=== PATIENT | male | born 1965 | race Two or more races ===

== ENCOUNTER 2018-05-01 13:06 | Emergency (ER) | payer SELFPAY ==
[~2018-05-01] VITALS: Ht 177.8 cm; Wt 113.4 kg
[~2018-05-01 13:06] MED LIST: ALLO300T2 PO; COLCPOW2 PO; INS7030I SC; LOSA25TA40 PO; METF-370 PO; PANT40TA2 PO
[2018-05-01 13:21] VITALS: BP 122/76
[2018-05-01] MEDS ORDERED: SILVER SULFADIAZINE 1 % TOPICAL CREAM 50GM TOP ONE (14:45)
== END 2018-05-01 15:39 | disposition home or self-care (01) ==
LOC: ER 13:06
DX: T20.10XA Burn of first degree of head, face, and neck, unspecified site, initial encounter (principal); M70.32 Other bursitis of elbow, left elbow; E11.9 Type 2 diabetes mellitus without complications; I10 Essential (primary) hypertension; M10.9 Gout, unspecified; F17.290 Nicotine dependence, other tobacco product, uncomplicated; Z59.0 Homelessness; X08.8XXA Exposure to other specified smoke, fire and flames, initial encounter; Y93.89 Activity, other specified; Y99.8 Other external cause status; Y92.89 Other specified places as the place of occurrence of the external cause

== ENCOUNTER 2019-04-16 15:42 | Inpatient (IN) | payer SELFPAY ==
[~2019-04-16] VITALS: Ht 177.8 cm; Wt 103.1 kg
[~2019-04-16 15:42] MED LIST changes: +LOSA25TA38 PO; -LOSA25TA40 PO
[2019-04-16 16:16] LABS: Basophils # (auto) 0.1 uL; Basophils % (auto) 0.9 % (0.0-2.0); Eosinophils # (auto) 0.2 uL; Eosinophils % (auto) 1.7 % (0.0-7.0); Hematocrit 29.8 % (41.0-53.0); Hemoglobin 10.5 g/dL (13.5-17.5); Lymphocytes % (auto) 22.7 % (10.0-50.0); Mean Corpuscular Hemoglobin 31.9 pg (28.0-32.0); Mean Corpuscular Hgb Conc. 35.1 g/dL (32.0-36.0); Mean Corpuscular Volume 90.9 fL (80.0-100.0); Monocytes # (auto) 0.6 uL; Neutrophils % (auto) 67.7 % (37.0-80.0); Nucleated Red Blood Cells % 0.2 %; Platelet Count (auto) 241 10^3/uL (140-450); Red Blood Cells 3.28 10^6/uL (4.5-5.90); Red Cell Distribution Width 14.1 % (11.8-14.3); White Blood Cell 8.9 10^3/uL (4.4-10.8)
[2019-04-16 17:38] LABS: Albumin 3.5 g/dL (3.4-5.0); Anion Gap 8 (5-15); Blood Urea Nitrogen 19 mg/dL (7-18); Calcium 8.8 mg/dL (8.5-10.1); Carbon Dioxide 24 mmol/L (21-32); Chloride 104 mmol/L (98-107); Glucose 198 mg/dL (74-106); Potassium 3.8 mmol/L (3.5-5.1); Sodium 136 mmol/L (136-145)
[2019-04-16 17:45] LABS: Alanine Aminotransferase 19 U/L (16-61); Alkaline Phosphatase 89 U/L (45-117); Aspartate Aminotransferase 15 U/L (15-37); BUN/Creatinine Ratio 24.1; Bilirubin, Total 0.5 mg/dL (0.2-1.0); GFR African American 131 mL/min; GFR Non-African American 108 mL/min; Total Protein 6.6 g/dL (6.4-8.2)
[2019-04-17] MEDS ORDERED: PANTOPRAZOLE 40 MG/10 ML VIAL INJ IV ONE (01:00)
[2019-04-17] MEDS ORDERED: SODIUM CHLORIDE 0.9% 1,000 ML IV ONE (01:00)
[2019-04-17] MEDS ORDERED: ONDANSETRON HCL 4 MG/2 ML VIAL IV ONE (01:00)
[2019-04-17] MEDS ORDERED: PANTOPRAZOLE 80 MG in SODIUM CHL 0.9% 60 ML IV ONE (01:00)
[2019-04-17 02:08] LABS: INR 1.03 (0.9-1.15); Partial Thromboplastin Time 25.6 sec (23.64-32.05)
[2019-04-17 02:10] LABS: Amylase 32 U/L (25-115); Lipase 82 U/L (73-393)
[2019-04-17] MEDS ORDERED: ONDANSETRON HCL 4 MG/2 ML VIAL IV PRN (05:15)
[2019-04-17] MEDS ORDERED: MORPHINE SULF INJ 2 MG/ML SYRINGE 1ML IV PRN (05:15)
[2019-04-17] MEDS ORDERED: NITROGLYCERIN 0.4 MG SL TAB SL PRN (05:15)
[2019-04-17] MEDS ORDERED: PANTOPRAZOLE 80 MG in SODIUM CHL 0.9% 60 ML IV SCH (05:15)
[2019-04-17] MEDS ORDERED: DEXTROSE (50%) 50ML SYRG IV PRN (05:15)
[2019-04-17] MEDS: SODIUM CHLORIDE 0.9% 1,000 ML IV SCH ×2 (05:31→18:35)
[2019-04-17] MEDS: ACCU-CHEK COMFORT CURVE STRIP VI SCH ×3 (05:56→17:45)
[2019-04-17] MEDS: InsuLIN REG 1unit/0.01ml Soln (100units/ml) SC SCH ×3 (05:59→17:58)
[2019-04-17 06:04] LABS: Hematocrit 25.3 % (41.0-53.0); Hemoglobin 8.7 g/dL (13.5-17.5)
[2019-04-17 08:00] VITALS: BP 99/58
--- NOTE | 2019-04-17 08:30 | NUR ---
Telemetry admit from [facility] admitted to Telemetry unit. Patient oriented to primary RN, unit, room, bed, and unit policies regarding patient care and visiting hours. Patient now on continuous telemetry monitoring, tele box #14 and telemetry reading on arrival to unit is SINUS JOSELIN 55. VITAL SIGNS TAKEN, ON ROOM AIR SATURATING 100%.BP 99/58,RR 18,HR 56,TEMP.97.9,weighed by bedscale and encouraged to call if they need something. All questions and concerns addressed, patient verbalized understanding.
--- NOTE | 2019-04-17 11:30 | NUR ---
MD VISIT DR. RAO HERE TO SEE AND EXAMINED PATIENT,INFORMED PATIENT PLAN OF CARE AND EXPECTED PROCEDURE,EGD, PATIENT VERBALIZED UNDERSTANDING.
[2019-04-17] MEDS ORDERED: MIDAZOLAM HCL 5 MG/ML-1ML VIAL ONE (11:32)
[2019-04-17] MEDS ORDERED: fentaNYL CITRATE 100 MCG/2 ML VL ONE (11:32)
[2019-04-17] MEDS ORDERED: LIDOCAINE VISCOUS 2% 15ML UD ONE (11:32)
[2019-04-17] MEDS ORDERED: FLUMAZENIL 0.1 MG/ML INJ 10ML MDV IV ONE (11:32)
[2019-04-17] MEDS ORDERED: SODIUM CHLORIDE LOCK 10 ML ONE (11:32)
[2019-04-17] MEDS ORDERED: NALOXONE HCL 0.4 MG/ML VIAL ONE (11:32)
[2019-04-17] MEDS ORDERED: diphenhdrAMINE HCL 50 MG/1 ML VL ONE (11:33)
--- NOTE | 2019-04-17 11:45 | NUR ---
CONSENT FOR EGD SIGNED BY PATIENT,SEE CONSENT SIGNED
[2019-04-17 12:00] VITALS: BP 100/57
--- NOTE | 2019-04-17 12:40 | NUR ---
TO OPS FOR EGD,REPORT GIVEN TO JUANI SALEH
--- NOTE | 2019-04-17 13:35 | NUR ---
PATIENT CHECKED ALREADY IN ROOM EATING LUNCH (REPORT POST EGD RECEIVED BY DANYELLE SALEH LUNCH COVERAGE) NO DISTRESS NO DISCOMFORT. Addendum: 04/17/19 at 1612 by Shayy Porter RN RN [id number] TIME FOR ABOVE EVENT
[2019-04-17 17:00] VITALS: BP 98/60
--- NOTE | 2019-04-17 17:14 | NUR ---
RESTING NO DISTRESS NO DISCOMFORT
[2019-04-17 22:00] VITALS: BP 91/59
[2019-04-17] MEDS: PANTOPRAZOLE 40 MG TAB PO SCH (22:16)
[2019-04-18] VITALS (23 sets, daily range): BP systolic 80–102; BP diastolic 46–67
[2019-04-18] MEDS: InsuLIN REG 1unit/0.01ml Soln (100units/ml) SC SCH ×5 (06:01→23:45)
[2019-04-18] MEDS: ACCU-CHEK COMFORT CURVE STRIP VI SCH ×5 (06:01→23:52)
[2019-04-18 06:34] LABS: Basophils # (auto) 0 uL; Basophils % (auto) 0.6 % (0.0-2.0); Eosinophils # (auto) 0.2 uL; Eosinophils % (auto) 2.6 % (0.0-7.0); Hematocrit 24.3 % (41.0-53.0); Hemoglobin 8.5 g/dL (13.5-17.5); Lymphocytes # (auto) 1.9 uL; Lymphocytes % (auto) 28.7 % (10.0-50.0); Mean Corpuscular Hemoglobin 32.4 pg (28.0-32.0); Mean Corpuscular Hgb Conc. 35.1 g/dL (32.0-36.0); Mean Corpuscular Volume 92.4 fL (80.0-100.0); Monocytes # (auto) 0.5 uL; Monocytes % (auto) 7.2 % (0.0-12.0); Neutrophils % (auto) 60.9 % (37.0-80.0); Nucleated Red Blood Cells % 0.1 %; Platelet Count (auto) 197 10^3/uL (140-450); Red Blood Cells 2.63 10^6/uL (4.5-5.90); Red Cell Distribution Width 14.2 % (11.8-14.3); White Blood Cell 6.6 10^3/uL (4.4-10.8)
--- NOTE | 2019-04-18 06:51 | NUR ---
HOSPITALIST PAGED REGARDING H/G OF 8.5/24.3;WITH TEVIN CALLING BACK RIGHT AWAY;BUT NO ORDERS RECEIVED. WILL PASS DOWN TO DAYSHIFT RN TO MAKE AM HOSPITALIST AWARE OF RESULTS.
[2019-04-18 07:06] LABS: BUN/Creatinine Ratio 11.4; Calcium 8.2 mg/dL (8.5-10.1); Potassium 3.6 mmol/L (3.5-5.1)
[2019-04-18] MEDS: SODIUM CHLORIDE 0.9% 1,000 ML IV SCH ×2 (08:14→21:15)
[2019-04-18] MEDS: PANTOPRAZOLE 40 MG TAB PO SCH ×2 (09:51→22:29)
[2019-04-18] MEDS ORDERED: SODIUM CHLORIDE 0.9% 1,000 ML IV ONE (11:00)
--- NOTE | 2019-04-18 11:30 | NUR ---
LOW BLOOD PRESSURE PATIENT BLOOD PRESSURE 84/[address] Leslee NGUYEN ORDERED 1L NS IV BOLUS OVER 2 HOURS.
--- NOTE | 2019-04-18 15:00 | NUR ---
LOW BLOOD PRESSURE CALLED DR. Leslee NGUYEN REGARDING LOW BP OF 87/56 [facility]. THE PATIENT WAS GIVEN A 1L BOLUS NS IV BEFORE LAST BLOOD PRESSURE READING. DR. NGUYEN ORDERED IV NS TO BE INCREASED TO 150 ML/HR.
--- NOTE | 2019-04-18 15:45 | NUR ---
PATIENT TO BE TRANSFERRED TO [facility]/ICU PER DR. Leslee NGUYEN REQUEST.
[2019-04-18] MEDS ORDERED: NOREPINEPHRINE 8 MG/250ML KIT 250 ML IV SCH (15:47)
--- NOTE | 2019-04-18 16:07 | NUR ---
REPORT GIVEN TO MIKAL IN ICU PATIENT TO GO TO ROOM 102 UNDER CARE OF THE RNMIKAL.
--- NOTE | 2019-04-18 16:07 | NUR ---
REPORT RECEIVED FROM NURSE PEREZ FROM TELEMETRY FLOOR. PATIENT TRANSFER TO ROOM 102 ICU.
--- NOTE | 2019-04-18 16:29 | NUR ---
PATIENT TAKEN TO ICU PATIENT TRANSPORTED TO ICU BED 102, BY ABNER RESERVATION SALES AGENT, AND MIREYA BLEVINS. PATIENT IS A&OX4, NO SIGNS OR SYMPTOMS OF DISTRESS. THE PATIENT HAS ALL BELONGINGS AND CHART WAS SENT DOWN WITH THE RESERVATION SALES AGENT. REPORT WAS GIVEN TO MIKAL PUBLIC RELATIONS STUDIES DIRECTOR.
--- NOTE | 2019-04-18 16:30 | NUR ---
PATIENT ARRIVED TO ROOM 102 ICU VIA BED CONNECTED TO PORTABLE MONITOR. PATIENT CONNECTED TO BEDSIDE MONITOR. VITAL SIGNS STABLE. RESPIRATIONS EVEN AND UNLABORED NO SIGNS OF ACUTE DISTRESS NOTED. CALL LIGHT IN REACH, BED IN LOW POSITION. WILL CONTINUE TO MONITOR.
--- NOTE | 2019-04-18 20:00 | NUR ---
ADMITTING DIAGNOSIS: GI BLEED. CAME IN AFTER HAVING TARRY STOOLS AND SYNCOPE. HG STABLE. HAD AN EGD TODAY. PATIENT IS AWARE OF THE RESULTS. SBP LOW ON THE FLOOR. 2 LITER BOLUS GIVEN AND TRANSFERRED TO ICU 102. NO FEVER. SBP STABLE. LAST HG 8.5. HR 59. SINUS BRADYCARDIA. NO ECTOPY. IV LEAKING AT THE LEFT AC. REMOVED IV. PICC RN TO COME AND PLACE A MIDLINE.
--- NOTE | 2019-04-18 21:58 | NUR ---
MIDLINE INSERTION LAC.
--- NOTE | 2019-04-18 22:10 | NUR ---
Midline Placement: Patient educated on need for midline placement. All risks and benefits explained and all questions and concerns addresses prior to procedure. 18g/10cm midline inserted via L BASILIC vein using Ultrasound. Sterile technique utilized. Blood return obtained from SINGLE lumen and flushed easily with NS using proper technique. Midline secured with saline lock; biodisc and occlusive dressing applied. Primary RN notified. Midline lot # [id number].
[2019-04-19] VITALS (16 sets, daily range): BP systolic 89–112; BP diastolic 54–73
--- NOTE | 2019-04-19 | NUR ---
ACCUCHECK 247. HECTOR CRACKERS AND MILK, LUNGS CLEAR. ROOM AIR. DENIES PAIN. SPEECH CLEAR. NO GAS PAINS. LOW GRADE FEVER 99.2
--- NOTE | 2019-04-19 02:10 | NUR ---
DENIES PAIN, NAUSEA, DYSPNEA OR DIAPHORESIS. NO BLOODY STOOLS.
--- NOTE | 2019-04-19 02:53 | NUR ---
UNABLE TO DRAW FROM THE MIDLINE
--- NOTE | 2019-04-19 04:00 | NUR ---
SBP 89-96 WITH A MAP ALWAYS GREATER THAN 64. HR MINIMUM 49 AND MAX 66. DENIES PAIN. NO ECTOPY. LUNGS CLEAR. ROOM AIR. ABDOMEN SOFT. NO BLOODY STOOLS. VOIDED TWICE SO FAR THIS SHIFT. MIDLINE PATENT. NS AT 75CC/HR.
[2019-04-19 04:19] LABS: Basophils # (auto) 0 uL; Eosinophils # (auto) 0.1 uL; Monocytes # (auto) 0.4 uL; Nucleated Red Blood Cells % 0.1 %
[2019-04-19 04:22] LABS: Basophils % (auto) 0.3 % (0.0-2.0); Eosinophils % (auto) 2.2 % (0.0-7.0); Hematocrit 22.9 % (41.0-53.0); Lymphocytes # (auto) 1.7 uL; Lymphocytes % (auto) 27.4 % (10.0-50.0); Mean Corpuscular Hemoglobin 32.7 pg (28.0-32.0); Mean Corpuscular Volume 93.2 fL (80.0-100.0); Monocytes % (auto) 6.9 % (0.0-12.0); Neutrophils # (auto) 3.8 uL; Neutrophils % (auto) 63.2 % (37.0-80.0); Platelet Count (auto) 178 10^3/uL (140-450); Red Blood Cells 2.45 10^6/uL (4.5-5.90); Red Cell Distribution Width 14.6 % (11.8-14.3)
[2019-04-19] MEDS: InsuLIN REG 1unit/0.01ml Soln (100units/ml) SC SCH ×2 (05:42→12:47)
[2019-04-19] MEDS: ACCU-CHEK COMFORT CURVE STRIP VI SCH ×2 (05:43→12:00)
--- NOTE | 2019-04-19 06:00 | NUR ---
SLEEPING. SINUS BRADYCARDIA WITHOUT ECTOPY.
--- NOTE | 2019-04-19 07:25 | NUR ---
REPORT RECEIVED FROM APRON OPERATOR NURSE. PATIENT RESTING IN BED AT THIS TIME. RESPIRATIONS EVEN AND UNLABORED. NO SIGNS OF ACUTE DISTRESS NOTED. CALL LIGHT IN REACH, BED IN LOW POSITION. WILL CONTINUE TO MONITOR.
--- NOTE | 2019-04-19 08:45 | NUR ---
DR Cesar NGUYEN AT BEDSIDE TO ASSESS PATIENT AND DISCUSS PLAN OF CARE.
[2019-04-19 08:56] LABS: Albumin 2.8 g/dL (3.4-5.0); Calcium 7.9 mg/dL (8.5-10.1); Potassium 3.7 mmol/L (3.5-5.1)
[2019-04-19 08:59] LABS: BUN/Creatinine Ratio 8.2; Bilirubin, Total 0.3 mg/dL (0.2-1.0); Total Protein 5.2 g/dL (6.4-8.2)
[2019-04-19] MEDS: PANTOPRAZOLE 40 MG TAB PO SCH (09:28)
--- NOTE | 2019-04-19 09:40 | NUR ---
EKG COMPLETED PER MD ORDER
--- NOTE | 2019-04-19 10:00 | NUR ---
LIGHTHOUSE KEEPER AT BEDSIDE
--- NOTE | 2019-04-19 10:43 | NUR ---
REPORT GIVEN TO JACKIE SALEH FROM TELEMETRY FLOOR. PATIENT TO GO TO ROOM 214A. TELE BOX 40
--- NOTE | 2019-04-19 10:45 | NUR ---
PATIENT CARE ASSUMED REPORT RECEIVED. PT CARE ASSUMED. PT DENIES ANY PAIN/DISTRESS AT THIS TIME. PT UPDATED ON POC AND PENDING STOOL OCCULT. PT VERBALIZED UNDERSTANDING.
--- NOTE | 2019-04-19 10:45 | NUR ---
PATIENT TRANSFERRED TO ROOM 214A VIA WHEELCHAIR CONNECTED TO TELE BOX 40. NO SIGNS OF ACUTE DISTRESS NOTED. ANAESTHETIC TECHNICIAN AT BEDSIDE. INFORMED JACKIE OF PATIENT ARRIVAL.
[2019-04-19] MEDS: SODIUM CHLORIDE 0.9% 1,000 ML IV SCH (12:46)
--- NOTE | 2019-04-19 12:53 | NUR ---
FAMILIY AT BEDSIDE FAMILY AT BEDSIDE UPDATED ON POC. AWARE OF PENDING CARDIO EVAL.
--- NOTE | 2019-04-19 14:50 | NUR ---
Nutrition Assessment Notes please see attached link for complete assessment Est. Needs ABW [id number] kcal (23-25 kcal/kg), 89-97 gms pro (1.0-1.1 gms/kgBW). Will continue to monitor pertinent labs and reassess nutrient need prn Addendum: 04/19/19 at [address] Amended: Links added.
--- NOTE | 2019-04-19 15:24 | NUR ---
DISCHARGE CLEARANCE DR. HEREDIA AT BEDSIDE. STATING PATIENT IS CLEARED FOR DC. SIMONA WITH ECHO REPORT NOT BEING AVAILABLE YET. Addendum: 04/19/19 at 1715 by Narcisa Jones RN RN ORDERS RECEIVED TO COMPLETE ORTHOSTATICS. ORDER CARRIED OUT.
--- NOTE | 2019-04-19 16:26 | NUR ---
AT BEDSIDE DR. HUSAIN AT BEDSIDE DISCUSSING BIOPSY RESULTS WITH PTS. SPOKE TO MD REGARDING WHETHER OR NOT PT TO F/U IN 10 DAYS. OK FOR PT TO F/U IN 1 MONTH. PT INFORMED AND VERBALIZED UNDERSTANDING. Addendum: 04/19/19 at 1713 by Narcisa Jones RN RN MD PROVIDED ABX SCRIPTS FOR PATIENT. FAXED DOWN TO [facility]. ALL DC PRESCRIPTION PICKED UP BY PATIENTS SISTER.
--- NOTE | 2019-04-19 16:59 | NUR ---
assessment Patient is a 54 year old male who is alert and oriented. Patients cognitive abilities are intact. Prior to admission patient lived home with his girlfriend and functioned independently. Patient informed me he is able to care for his own ADLs. Per patient he will return home to his prior living arrangements post discharge and family will transport him home. Patient has no need for DME. Patient feels safe returning home on discharge. Patient has no post discharge needs. I informed patient he has a right to speak to a social studies teacher regarding all care. I informed patient he has a right to participate in any and all discharge planning. Patient does not have a POA and advanced directive. I have offered patient information on POA and advanced directives. I informed the patient the advantages and benefits of having an Advanced Directive. Patient verbalized understanding and agreed to discharge plan. Addendum: 04/19/19 at 1701 by Stacie DONNELLY Amended: Links added.
== END 2019-04-19 17:15 | disposition home or self-care (01) | DRG 379 ==
LOC: ER 15:42 → TELE 15:43 → TELE-EAST 04-17 08:36 → ICU WEST 04-18 16:30 → CENTRAL 04-19 10:51
PROVIDERS: ADMIT Nurse Practitioner; ATTEND Family Medicine
PROC: 0DB68ZX Excision of Stomach, Via Natural or Artificial Opening Endoscopic, Diagnostic (ICD-10-PCS; principal; 2019-04-17 12:51)
DX: K29.71 Gastritis, unspecified, with bleeding (principal); E66.9 Obesity, unspecified; E86.0 Dehydration; F17.290 Nicotine dependence, other tobacco product, uncomplicated; I10 Essential (primary) hypertension; D64.9 Anemia, unspecified; K26.7 Chronic duodenal ulcer without hemorrhage or perforation; M10.9 Gout, unspecified; E11.9 Type 2 diabetes mellitus without complications; R00.1 Bradycardia, unspecified; I95.9 Hypotension, unspecified; R55 Syncope and collapse; Z59.0 Homelessness; Z83.3 Family history of diabetes mellitus; Z87.11 Personal history of peptic ulcer disease; Z68.32 Body mass index [BMI] 32.0-32.9, adult
CPT/HCPCS: 36415; 70450; 74176; 80048; 80053; 82150; 82962; 83605; 83690; 84484; 85014; 85018; 85025; 85610; 85730; 86850; 86900; 86901; 87081; 93306; C9113; G0378; J1815; J2250; J2405

== ENCOUNTER → 2020-04-18 | Emergency (ER) | payer MEDICAID ==
[~2020-04-18] VITALS: Ht 177.8 cm; Wt 99.8 kg
[~2020-04-18] MED LIST changes: +FLUORESCEIN SOD 1 MG TEST STRIP LEFTEYE ONE; +TETRACAINE HCL 0.5% OPTH(EYE) SOLN 4ML LEFTEYE ONE
[2020-04-19 01:40] VITALS: BP 146/94
== END | disposition home or self-care (01) ==
LOC: ER 23:24
DX: H20.00 Unspecified acute and subacute iridocyclitis (principal); E11.9 Type 2 diabetes mellitus without complications; I10 Essential (primary) hypertension; F17.210 Nicotine dependence, cigarettes, uncomplicated; Z79.4 Long term (current) use of insulin; Z79.899 Other long term (current) drug therapy; Z79.84 Long term (current) use of oral hypoglycemic drugs; Z59.0 Homelessness

== ENCOUNTER 2020-10-09 14:57 | Emergency (ER) | payer MEDICAID ==
[~2020-10-09] VITALS: Ht 175.3 cm; Wt 99.8 kg
[~2020-10-09 14:57] MED LIST changes: -FLUORESCEIN SOD 1 MG TEST STRIP LEFTEYE ONE; -TETRACAINE HCL 0.5% OPTH(EYE) SOLN 4ML LEFTEYE ONE
[2020-10-09] MEDS ORDERED: InsuLIN REG 1unit/0.01ml Soln (100units/ml) IV ONE ×2 (15:15→18:15)
[2020-10-09] MEDS ORDERED: SODIUM CHLORIDE 0.9% 1,000 ML IV ONE (15:15)
[2020-10-09 15:29] LABS: Basophils # (auto) 0.1 10 ^3/uL (0-0.2); Basophils % (auto) 0.9 % (0.0-2.0); Eosinophils # (auto) 0.1 10 ^3/uL (0-0.8); Eosinophils % (auto) 1.8 % (0.0-7.0); Hemoglobin 15.8 g/dL (13.5-17.5); Lymphocytes # (auto) 1.5 10 ^3/uL (0.4-5.4); Mean Corpuscular Hemoglobin 31.8 pg (28.0-32.0); Mean Corpuscular Hgb Conc. 35.1 g/dL (32.0-36.0); Mean Corpuscular Volume 90.6 fL (80.0-100.0); Monocytes # (auto) 0.5 10 ^3/uL (0-1.3); Monocytes % (auto) 6.5 % (0.0-12.0); Neutrophils # (auto) 5.4 10 ^3/uL (1.6-8.6); Neutrophils % (auto) 70.8 % (37.0-80.0); Nucleated Red Blood Cells % 0.2 %; Platelet Count (auto) 204 10^3/uL (140-450); Red Blood Cells 4.96 10^6/uL (4.5-5.90); Red Cell Distribution Width 13.7 % (11.8-14.3); White Blood Cell 7.6 10^3/uL (4.4-10.8)
[2020-10-09 15:48] LABS: Albumin 4.3 g/dL (3.4-5.0); BUN/Creatinine Ratio 12.6; Calcium 8.9 mg/dL (8.5-10.1); Potassium 3.9 mmol/L (3.5-5.1)
[2020-10-09 15:55] LABS: Bilirubin, Total 0.8 mg/dL (0.2-1.0); Total Protein 7.9 g/dL (6.4-8.2)
[2020-10-09 18:45] VITALS: BP 110/70
== END 2020-10-09 19:03 | disposition home or self-care (01) ==
LOC: ER 14:57
DX: E11.65 Type 2 diabetes mellitus with hyperglycemia (principal); M10.9 Gout, unspecified
CPT/HCPCS: 36415; 71045; 80053; 82010; 82962; 85025; 93005; 96361; 96374; 96376; 99285; J7030